=== PATIENT | male | born 1985 | race African-American/Black ===

== ENCOUNTER 2016-11-04 18:48 | Emergency (ER) | payer BC ==
[~2016-11-04] VITALS: Ht 177.8 cm; Wt 95.7 kg
[2016-11-04 19:17] VITALS: BP 174/92
--- NOTE | 2016-11-04 19:37 | PHYS DOC ---
Past Medical History Past Medical History: No Pertinent History Past Surgical History: No Surgical History Alcohol Use: None Drug Use: None Adult General Chief Complaint Chief Complaint: SHORTNESS OF BREATH HPI HPI Patient is a 31 year old male presents emergency room today with complaint of feeling a "gas bubble and some pressure in the epigastric region. Patient states this happened when he was lying down. Patient states that he sat up and broken relieve the pressure. He does have a history of hypertension just became concerned about it. He states that he called into work and decided to come into the emergency room today for evaluation. Currently, patient has no complaints of chest pain, palpitations, dyspnea or lightheadedness. Patient has no history of cardiopulmonary or gastrointestinal disease. He denies any history of chronic medical conditions other than hypertension. Review of Systems Review of Systems Constitutional: Denies fever or chills [] Eyes: Denies change in visual acuity, redness, or eye pain [] HENT: Denies nasal congestion or sore throat [] Respiratory: Denies cough or shortness of breath [] Cardiovascular: No additional information not addressed in HPI [] GI: Denies abdominal pain, nausea, vomiting, bloody stools or diarrhea [] : Denies dysuria or hematuria [] Musculoskeletal: Denies back pain or joint pain [] Integument: Denies rash or skin lesions [] Neurologic: Denies headache, focal weakness or sensory changes [] Endocrine: Denies polyuria or polydipsia [] Allergies Allergies Allergies Coded Allergies Type Severity Reaction Last Updated Verified No Known Drug Allergies 11/04/16 No Physical Exam Physical Exam Constitutional: Well developed, well nourished, no acute distress, non-toxic appearance. [] HENT: Normocephalic, atraumatic, bilateral external ears normal, oropharynx moist, no oral exudates, nose normal. [] Eyes: PERRLA, EOMI, conjunctiva normal, no discharge. [] Neck: Normal range of motion, no tenderness, supple, no stridor. [] Cardiovascular:Heart rate regular rhythm, no murmur. PMI is nondisplaced. There is no JVD. There is no lower extremity edema. Lungs & Thorax: Bilateral breath sounds clear to auscultation [] Abdomen: Bowel sounds normal, soft, no tenderness, no masses, no pulsatile masses. Skin: Warm, dry, no erythema, no rash. [] Back: No tenderness, no CVA tenderness. [] Extremities: No tenderness, no cyanosis, no clubbing, ROM intact, no edema. [] Neurologic: Alert and oriented X 3, normal motor function, normal sensory function, no focal deficits noted. [] Psychologic: Affect normal, judgement normal, mood normal. [] Current Patient Data Vital Signs Vital Signs Date Time Temp Pulse Resp B/P Pulse Ox O2 Delivery O2 Flow Rate FiO2 11/04/16 19:17 98.3 77 18 98 Room Air 98.3 EKG EKG [] Radiology/Procedures Radiology/Procedures [] Course & Med Decision Making Course & Med Decision Making Patient admitted that his reason for coming to the emergency room tonight was sedated already called his work and informed him that he would not be coming in. Dragon Disclaimer Dragon Disclaimer This electronic medical record was generated, in whole or in part, using a voice recognition dictation system. Departure Departure Impression: Primary Impression: Hypertension Additional Impression: Normal exam Disposition: HOME, SELF-CARE Condition: GOOD Referrals: NO PCP (PCP) Patient Instructions: Hypertension, [id number], Normal Exam in Emergency Department Additional Instructions: 1. Other than your blood pressure, everything else here today is normal. 2. You need to have a primary care doctor. Use the pamphlet provided for assistance in finding one to address your medical concerns. 3. Review the discharge instructions provided, especially reasons to return the emergency room. Problem Qualifiers EDDA EDWARDS Nov 04, 2016 19:37
== END 2016-11-04 19:45 | disposition home or self-care (01) ==
LOC: ER 18:55
DX: I10 Essential (primary) hypertension (principal); R10.13 Epigastric pain
CPT/HCPCS: 99281